=== PATIENT | female | born 1935 | race Caucasian/White ===

== ENCOUNTER → 2017-12-03 | Outpatient (CLI) | payer MEDICARE, OTHER ==
[~2017-12-03] MED LIST: OMNIPAQUE 350 MG/ML, 100ML BOTTLE ONE
[2017-12-03 10:29] LABS: CREATININE 1.16 mg/dL (0.55-1.02)
== END | disposition home or self-care (01) ==
LOC: RAD 09:36
PROVIDERS: ATTEND Internal Medicine Cardiovascular Disease
DX: R19.01 Right upper quadrant abdominal swelling, mass and lump (principal)
CPT/HCPCS: 36415; 74160; 82565; Q9967

== ENCOUNTER 2018-04-26 14:53 | Emergency (ER) | payer OTHER ==
[~2018-04-26] VITALS: Ht 165.1 cm; Wt 55.5 kg
[2018-04-26 15:11] VITALS: BP 103/57
--- NOTE | 2018-04-26 15:20 | NUR ---
PT AMBULATED STEADILY TO ROOM WITH BOX SPINNER AND FAMILY. NAD NOTED
--- NOTE | 2018-04-26 16:01 | NUR ---
FIRST CONTACT WITH PT. PT SITTING UP IN GURNEY, AWAKE/ALERT. NAD NOTED. PT/FAMILY REPORT SOME RECENT CHANGE IN BEHAVIOR. PT RESPONDING TO QUESTIONS APPROPRIATELY W/ APPROPRIATE DEMEANOR. HX OF MILD DEMENTIA, RX'D ATIVAN. AND RECENT DX OF UTI. PT AMBULATED STEADILY TO BATHROOM TO PROVIDE UA SAMPLE.
--- NOTE | 2018-04-26 16:12 | NUR ---
UA COLLECTED AND SENT TO LAB Addendum: 04/26/18 at 1725 by LWEGENER PT REPORTS "YOU KNOW WHEN YOU'RE AT THAT TIME OF THE MONTH AND YOU JUST FEEL MORE EMOTIONAL THAN NORMAL? I FEEL LIKE I JUST LIVE AT THAT ALL OF THE TIME. ITS A LOT TO HANDLE"
[2018-04-26 16:24] LABS: CULTURE INDICATED? YES; MICROSCOPIC INDICATED
[2018-04-26 16:40] LABS: BASOPHILS # (AUTO) 0.04 x10^3/uL (0-0.1); BASOPHILS % (AUTO) 1 % (0-1); EOSINOPHILS # (AUTO) 0.08 x10^3/uL (0-0.4); EOSINOPHILS % (AUTO) 2 % (1-7); LYMPHOCYTES # (AUTO) 1.37 x10^3/uL (1-3.4); LYMPHOCYTES % (AUTO) 35 % (22-44); MD NO; MEAN CORPUSCULAR HEMOGLOBIN 30.5 pg (27.0-34.8); MEAN CORPUSCULAR VOLUME 89.6 fL (80-100); MEAN PLATELET VOLUME 8.2 fL (7.4-10.4); MONOCYTES # (AUTO) 0.35 x10^3/uL (0.2-0.8); MONOCYTES % (AUTO) 9 % (2-9); NEUTROPHILS # (AUTO) 2.08 x10^3/uL (1.8-6.8); NEUTROPHILS % (AUTO) 53 % (42-75); PLATELET COUNT 311 x10^3/uL (130-400); RED BLOOD COUNT 4.17 x10^6/uL (3.82-5.3); RED CELL DISTRIBUTION WIDTH 12.6 % (9.6-15.2)
[2018-04-26 16:45] LABS: ALANINE AMINOTRANSFERASE 34 U/L (12-78); ALBUMIN 3.8 g/dL (3.4-5.0); ANION GAP 8 mmol/L (5-15); CALCIUM 8.2 mg/dL (8.5-10.1); CHLORIDE 105 mmol/L (98-107); CREATININE 1.46 mg/dL (0.55-1.02)
[2018-04-26 16:47] LABS: SALICYLATE LEVEL < 1.7 mg/dL (2.8-20.0)
[2018-04-26 16:48] LABS: ACETAMINOPHEN < 2 mcg/mL (10-30); ALKALINE PHOSPHATASE 109 U/L (45-117); BILIRUBIN,TOTAL 0.6 mg/dL (0.2-1.0); TOTAL PROTEIN 7.5 g/dL (6.4-8.2)
[2018-04-26 16:57] LABS: AMPHETAMINE SCREEN, URINE Negative (Negative); BARBITURATE SCREEN, URINE Negative (Negative); BENZODIAZEPINE SCREEN, URINE Negative (Negative); CANNABINOID SCREEN, URINE Negative (Negative); COCAINE SCREEN, URINE Negative (Negative); METHADONE SCREEN, URINE Negative (Negative); OPIATE SCREEN, URINE Negative (Negative)
--- NOTE | 2018-04-26 17:23 | NUR ---
PT SITTING UP IN BIMAL VILLATORO NOTED. SOC TELE-BOT AT BEDSIDE. FAMILY PRESENT. PT CALM AND COOPERATIVE.
--- NOTE | 2018-04-26 17:44 | NUR ---
REPORT TO SOC MD
--- NOTE | 2018-04-26 18:05 | NUR ---
REPORT TO WILLY FIELDS
[2018-04-26 18:17] LABS: FREE T4 (FREE THYROXINE) 1.53 ng/dL (0.76-1.46); THYROID STIMULATING HORMONE 6.77 mIU/L (0.358-3.740)
--- NOTE | 2018-04-26 18:20 | NUR ---
TELEPSYCH CURRENTLY IN PROGRESS
--- NOTE | 2018-04-26 18:57 | NUR ---
TELEPSYCH CONSULT COMPLETED. AWAITING RECHECK BY MD FOR DISPO. PT RESTING IN ROOM WITH FAMILY AT BEDSIDE. CALL LIGHT WITHIN REACH. FAMILY UPDATED.
--- NOTE | 2018-04-26 19:15 | NUR ---
DC PAPERS RECEIVED. PT REQUESTING TO SPEAK WITH MD PRIOR TO DC, NOTIFIED
--- NOTE | 2018-04-26 19:18 | NUR ---
MD AT BEDSIDE TO UPDATE PT AND FAMILY ON POC.
== END 2018-04-26 19:23 | disposition home or self-care (01) ==
LOC: ED 16:41
DX: G30.0 Alzheimer's disease with early onset (principal); F02.80 Dementia in other diseases classified elsewhere, unspecified severity, without behavioral disturbance, psychotic disturbance, mood disturbance, and anxiety
CPT/HCPCS: 36415; 80053; 80307; 80329; 81001; 84439; 84443; 85025; 87086; 99283; G0480

== ENCOUNTER 2018-05-09 23:46 | Observation (INO) | payer MEDICARE, OTHER ==
[~2018-05-09] VITALS: Ht 165.1 cm; Wt 57.6 kg
[~2018-05-09 23:46] MED LIST changes: +ATIVAN PO; +NITR100C56 PO; -OMNIPAQUE 350 MG/ML, 100ML BOTTLE ONE; +ONDA4TAB12 PO; +PHEN-418 PO
[2018-05-10 00:54] LABS: BASOPHILS # (AUTO) 0.04 x10^3/uL (0-0.1); BASOPHILS % (AUTO) 1 % (0-1); EOSINOPHILS # (AUTO) 0.08 x10^3/uL (0-0.4); EOSINOPHILS % (AUTO) 2 % (1-7); LYMPHOCYTES # (AUTO) 1.38 x10^3/uL (1-3.4); LYMPHOCYTES % (AUTO) 41 % (22-44); MD NO; MEAN CORPUSCULAR HEMOGLOBIN 30.8 pg (27.0-34.8); MEAN CORPUSCULAR HGB CONC 34.6 g/dL (32.4-35.8); MEAN CORPUSCULAR VOLUME 89.2 fL (80-100); MONOCYTES # (AUTO) 0.48 x10^3/uL (0.2-0.8); MONOCYTES % (AUTO) 14 % (2-9); NEUTROPHILS % (AUTO) 41 % (42-75); PLATELET COUNT 206 x10^3/uL (130-400); RED CELL DISTRIBUTION WIDTH 13.3 % (9.6-15.2)
[2018-05-10] MEDS: OLANZAPINE 2.5 MG TABLET PO SCH ×2 (01:00→20:06)
[2018-05-10] MEDS ORDERED: ONDANSETRON 2MG/ML, 2ML IVPush PRN (01:00)
[2018-05-10 01:05] LABS: ALANINE AMINOTRANSFERASE 20 U/L (12-78); ALBUMIN 3.3 g/dL (3.4-5.0); ANION GAP 7 mmol/L (5-15); CALCIUM 8.2 mg/dL (8.5-10.1); CHLORIDE 112 mmol/L (98-107); CREATININE 1.45 mg/dL (0.55-1.02)
[2018-05-10 01:15] LABS: ALKALINE PHOSPHATASE 119 U/L (45-117); BILIRUBIN,TOTAL 0.4 mg/dL (0.2-1.0); THYROID STIMULATING HORMONE 0.167 mIU/L (0.358-3.740); TOTAL PROTEIN 6.4 g/dL (6.4-8.2)
--- NOTE | 2018-05-10 01:28 | NUR ---
REPORT GIVEN TO WILLY EDMONDS
[2018-05-10 01:53] VITALS: BP 162/84
[2018-05-10 03:40] LABS: MICROSCOPIC AUTO
[2018-05-10 03:48] LABS: CULTURE INDICATED? NO
[2018-05-10 06:33] VITALS: BP 164/78
[2018-05-10] MEDS ORDERED: POTASSIUM CHLORIDE 20 MEQ TAB.ER.PRT PO ONE (09:00)
[2018-05-10] MEDS: LISINOPRIL 10 MG TABLET PO SCH (09:44)
[2018-05-10 12:38] VITALS: BP 144/67
[2018-05-10 19:06] VITALS: BP 139/67
[2018-05-11 01:59] VITALS: BP 167/81
[2018-05-11 06:06] LABS: CHLORIDE 113 mmol/L (98-107)
[2018-05-11 06:09] LABS: MEAN CORPUSCULAR HGB CONC 33.7 g/dL (32.4-35.8); MEAN CORPUSCULAR VOLUME 89.1 fL (80-100); MEAN PLATELET VOLUME 8.2 fL (7.4-10.4); PLATELET COUNT 176 x10^3/uL (130-400); RED BLOOD COUNT 3.73 x10^6/uL (3.82-5.3); RED CELL DISTRIBUTION WIDTH 12.7 % (9.6-15.2)
[2018-05-11 06:26] LABS: BASOPHILS # (AUTO) 0.03 x10^3/uL (0-0.1); BASOPHILS % (AUTO) 1 % (0-1); EOSINOPHILS % (AUTO) 4 % (1-7); LYMPHOCYTES # (AUTO) 1.48 x10^3/uL (1-3.4); LYMPHOCYTES % (AUTO) 51 % (22-44); MD SCAN; MONOCYTES # (AUTO) 0.36 x10^3/uL (0.2-0.8); MONOCYTES % (AUTO) 12 % (2-9); NEUTROPHILS # (AUTO) 0.93 x10^3/uL (1.8-6.8); NEUTROPHILS % (AUTO) 32 % (42-75)
[2018-05-11 06:27] LABS: ALANINE AMINOTRANSFERASE 17 U/L (12-78); ALBUMIN 3.3 g/dL (3.4-5.0); ALKALINE PHOSPHATASE 86 U/L (45-117); ANION GAP 7 mmol/L (5-15); BILIRUBIN,TOTAL 0.6 mg/dL (0.2-1.0); CALCIUM 8.5 mg/dL (8.5-10.1); CREATININE 1.05 mg/dL (0.55-1.02); FREE T4 (FREE THYROXINE) 1.05 ng/dL (0.76-1.46); THYROID STIMULATING HORMONE 0.237 mIU/L (0.358-3.740); TOTAL PROTEIN 6.4 g/dL (6.4-8.2)
[2018-05-11 06:52] VITALS: BP 183/85
[2018-05-11] MEDS: LISINOPRIL 10 MG TABLET PO SCH (07:35)
[2018-05-11 08:20] VITALS: BP 189/90
[2018-05-11] MEDS: ENALAPRILAT 1.25 MG/ML, 2ML IV PRN (08:35)
[2018-05-11 09:08] VITALS: BP 148/70
[2018-05-11 12:17] VITALS: BP 164/79
[2018-05-11] MEDS ORDERED: ACETAMINOPHEN 325 MG TABLET PO PRN (16:00)
[2018-05-11 19:15] VITALS: BP 153/78
[2018-05-11] MEDS: OLANZAPINE 2.5 MG TABLET PO SCH (20:40)
[2018-05-12] VITALS (8 sets, daily range): BP systolic 158–186; BP diastolic 65–88
[2018-05-12] MEDS: ENALAPRILAT 1.25 MG/ML, 2ML IV PRN ×2 (02:31→13:30)
[2018-05-12] MEDS: LISINOPRIL 10 MG TABLET PO SCH ×2 (07:32→20:06)
[2018-05-12 08:49] LABS: MEAN CORPUSCULAR HGB CONC 33.6 g/dL (32.4-35.8); MEAN CORPUSCULAR VOLUME 89.3 fL (80-100); MEAN PLATELET VOLUME 7.9 fL (7.4-10.4); PLATELET COUNT 219 x10^3/uL (130-400); RED CELL DISTRIBUTION WIDTH 13.1 % (9.6-15.2)
[2018-05-12 09:00] LABS: ALBUMIN 4.1 g/dL (3.4-5.0); ANION GAP 6 mmol/L (5-15); CALCIUM 9.4 mg/dL (8.5-10.1); CHLORIDE 107 mmol/L (98-107); CREATININE 1.14 mg/dL (0.55-1.02)
[2018-05-12 09:53] LABS: BASOPHILS # (AUTO) 0.02 x10^3/uL (0-0.1); BASOPHILS % (AUTO) 1 % (0-1); EOSINOPHILS % (AUTO) 4 % (1-7); LYMPHOCYTES # (AUTO) 1.18 x10^3/uL (1-3.4); LYMPHOCYTES % (AUTO) 41 % (22-44); MD SCAN; MONOCYTES # (AUTO) 0.36 x10^3/uL (0.2-0.8); MONOCYTES % (AUTO) 12 % (2-9); NEUTROPHILS # (AUTO) 1.21 x10^3/uL (1.8-6.8); NEUTROPHILS % (AUTO) 42 % (42-75)
[2018-05-12] MEDS ORDERED: AMLODIPINE 5 MG TABLET PO ONE (15:00)
[2018-05-12] MEDS ORDERED: LISINOPRIL 20 MG TABLET PO SCH (15:00)
[2018-05-12] MEDS: OLANZAPINE 2.5 MG TABLET PO SCH (20:06)
[2018-05-13 01:29] VITALS: BP 145/76
[2018-05-13 08:13] VITALS: BP 147/81
[2018-05-13] MEDS: LISINOPRIL 10 MG TABLET PO SCH ×2 (09:35→19:55)
[2018-05-13] MEDS: AMLODIPINE 5 MG TABLET PO SCH (09:35)
[2018-05-13 14:26] VITALS: BP 139/85
[2018-05-13 19:03] VITALS: BP 130/69
[2018-05-13] MEDS: OLANZAPINE 2.5 MG TABLET PO SCH (19:56)
[2018-05-14 00:10] VITALS: BP 123/75
[2018-05-14 05:51] LABS: MEAN CORPUSCULAR HEMOGLOBIN 30.3 pg (27.0-34.8); MEAN CORPUSCULAR HGB CONC 33.9 g/dL (32.4-35.8); MEAN CORPUSCULAR VOLUME 89.4 fL (80-100); MEAN PLATELET VOLUME 8.2 fL (7.4-10.4); PLATELET COUNT 202 x10^3/uL (130-400); RED BLOOD COUNT 4.08 x10^6/uL (3.82-5.3); RED CELL DISTRIBUTION WIDTH 13.2 % (9.6-15.2)
[2018-05-14 05:58] LABS: ALBUMIN 3.5 g/dL (3.4-5.0); ANION GAP 5 mmol/L (5-15); CALCIUM 8.9 mg/dL (8.5-10.1); CHLORIDE 110 mmol/L (98-107); CREATININE 1.09 mg/dL (0.55-1.02)
[2018-05-14 06:17] LABS: BASOPHILS # (AUTO) 0.02 x10^3/uL (0-0.1); BASOPHILS % (AUTO) 1 % (0-1); EOSINOPHILS # (AUTO) 0.11 x10^3/uL (0-0.4); EOSINOPHILS % (AUTO) 4 % (1-7); LYMPHOCYTES # (AUTO) 1.31 x10^3/uL (1-3.4); LYMPHOCYTES % (AUTO) 51 % (22-44); MD SCAN; MONOCYTES # (AUTO) 0.31 x10^3/uL (0.2-0.8); MONOCYTES % (AUTO) 12 % (2-9); NEUTROPHILS # (AUTO) 0.79 x10^3/uL (1.8-6.8); NEUTROPHILS % (AUTO) 31 % (42-75)
[2018-05-14 06:55] VITALS: BP 132/68
[2018-05-14] MEDS: LISINOPRIL 10 MG TABLET PO SCH ×2 (09:13→20:52)
[2018-05-14] MEDS: AMLODIPINE 5 MG TABLET PO SCH (09:15)
[2018-05-14 13:15] VITALS: BP 156/68
[2018-05-14 19:40] VITALS: BP 102/60
[2018-05-14 20:50] VITALS: BP 141/74
[2018-05-14] MEDS ORDERED: MELATONIN 3 MG TABLET PO SCH (21:00)
[2018-05-15 01:55] VITALS: BP 139/68
[2018-05-15] MEDS ORDERED: QUETIAPINE 25MG TABLET PO ONE (08:30)
[2018-05-15 08:45] VITALS: BP 120/56
[2018-05-15] MEDS: AMLODIPINE 5 MG TABLET PO SCH (08:51)
[2018-05-15] MEDS: LISINOPRIL 10 MG TABLET PO SCH ×2 (08:51→22:33)
[2018-05-15 09:07] VITALS: BP 122/93
[2018-05-15 11:52] LABS: BASOPHILS # (AUTO) 0.02 x10^3/uL (0-0.1); BASOPHILS % (AUTO) 1 % (0-1); EOSINOPHILS # (AUTO) 0.03 x10^3/uL (0-0.4); EOSINOPHILS % (AUTO) 1 % (1-7); LYMPHOCYTES # (AUTO) 0.93 x10^3/uL (1-3.4); LYMPHOCYTES % (AUTO) 31 % (22-44); MD NO; MEAN CORPUSCULAR HEMOGLOBIN 30.3 pg (27.0-34.8); MEAN CORPUSCULAR VOLUME 89.1 fL (80-100); MEAN PLATELET VOLUME 7.9 fL (7.4-10.4); MONOCYTES # (AUTO) 0.32 x10^3/uL (0.2-0.8); MONOCYTES % (AUTO) 11 % (2-9); NEUTROPHILS # (AUTO) 1.66 x10^3/uL (1.8-6.8); NEUTROPHILS % (AUTO) 56 % (42-75); PLATELET COUNT 215 x10^3/uL (130-400); RED BLOOD COUNT 3.73 x10^6/uL (3.82-5.3); RED CELL DISTRIBUTION WIDTH 13.2 % (9.6-15.2)
[2018-05-15 12:04] LABS: ALBUMIN 3.6 g/dL (3.4-5.0); ANION GAP 5 mmol/L (5-15); CALCIUM 8.8 mg/dL (8.5-10.1); CHLORIDE 108 mmol/L (98-107); CREATININE 1.11 mg/dL (0.55-1.02)
[2018-05-15 15:16] VITALS: BP 137/68
[2018-05-15] MEDS: VALPROATE SODIUM 250 MG/5 ML ORAL SOLN PO SCH ×3 (15:26→22:33)
[2018-05-15 19:12] VITALS: BP 154/72
[2018-05-15] MEDS: MELATONIN 5 MG TABLET PO SCH (22:33)
[2018-05-16 00:36] VITALS: BP 117/63
[2018-05-16 07:02] VITALS: BP 135/80
[2018-05-16] MEDS: AMLODIPINE 5 MG TABLET PO SCH (09:04)
[2018-05-16] MEDS: LISINOPRIL 10 MG TABLET PO SCH ×2 (09:04→21:00)
[2018-05-16] MEDS: VALPROATE SODIUM 250 MG/5 ML ORAL SOLN PO SCH ×2 (09:04→21:00)
[2018-05-16 09:30] VITALS: BP 95/68
[2018-05-16 13:33] VITALS: BP 127/72
[2018-05-16 19:16] VITALS: BP 103/62
[2018-05-16] MEDS: MELATONIN 5 MG TABLET PO SCH (21:00)
[2018-05-17 01:45] VITALS: BP 120/66
[2018-05-17 06:53] VITALS: BP 146/72
[2018-05-17] MEDS: LISINOPRIL 10 MG TABLET PO SCH ×2 (09:52→19:54)
[2018-05-17] MEDS: VALPROATE SODIUM 250 MG/5 ML ORAL SOLN PO SCH ×2 (09:52→19:54)
[2018-05-17 12:58] VITALS: BP 123/61
[2018-05-17 19:03] VITALS: BP 138/69
[2018-05-17] MEDS: MELATONIN 5 MG TABLET PO SCH (19:54)
[2018-05-18 03:10] VITALS: BP 137/64
[2018-05-18 06:57] VITALS: BP 125/77
[2018-05-18] MEDS: LISINOPRIL 10 MG TABLET PO SCH ×2 (09:39→20:04)
[2018-05-18] MEDS: VALPROATE SODIUM 250 MG/5 ML ORAL SOLN PO SCH ×2 (09:39→20:04)
[2018-05-18 13:38] VITALS: BP 149/81
[2018-05-18 18:46] VITALS: BP 126/81
[2018-05-18] MEDS: MELATONIN 5 MG TABLET PO SCH (20:04)
[2018-05-19] VITALS (10 sets, daily range): BP systolic 84–136; BP diastolic 48–79
[2018-05-19] MEDS: LISINOPRIL 10 MG TABLET PO SCH (09:37)
[2018-05-19] MEDS: VALPROATE SODIUM 250 MG/5 ML ORAL SOLN PO SCH ×2 (09:37→21:06)
[2018-05-19] MEDS ORDERED: SODIUM CHLORIDE 0.9%, 500ML IVBOLUS ONE (10:00)
[2018-05-19] MEDS: MELATONIN 5 MG TABLET PO SCH (21:06)
[2018-05-20 04:14] VITALS: BP 146/86
[2018-05-20 07:47] VITALS: BP 129/77
[2018-05-20] MEDS: VALPROATE SODIUM 250 MG/5 ML ORAL SOLN PO SCH (08:52)
[2018-05-20] MEDS ORDERED: MELA5TAB19 PO (11:17)
[2018-05-20] MEDS ORDERED: ACET325T14 PO (11:17)
[2018-05-20] MEDS ORDERED: VALP250S PO (11:17)
[2018-05-20 12:33] VITALS: BP 146/78
[2018-05-20 19:00] VITALS: BP 135/85
[2018-05-20] MEDS ORDERED: VALPROATE SODIUM 250 MG/5 ML ORAL SOLN PO SCH (19:00)
[2018-05-20] MEDS ORDERED: MELATONIN 5 MG TABLET PO SCH (19:00)
[2018-05-21 05:33] VITALS: BP 121/68
[2018-05-21 08:13] VITALS: BP 116/80
[2018-05-21] MEDS: VALPROATE SODIUM 250 MG/5 ML ORAL SOLN PO SCH (08:26)
[2018-05-21] MEDS ORDERED: VALPROATE SODIUM 250 MG/5 ML ORAL SOLN PO SCH (09:00)
== END 2018-05-21 11:33 | disposition home or self-care (01) ==
LOC: ED 05-10 00:05 → SUATTDRO 05-10 00:41 → EDIP 05-10 00:42 → 4NOR 05-10 01:45
PROVIDERS: ADMIT Hospitalist; ATTEND Hospitalist
DX: F03.90 Unspecified dementia, unspecified severity, without behavioral disturbance, psychotic disturbance, mood disturbance, and anxiety (principal); D64.9 Anemia, unspecified; E05.90 Thyrotoxicosis, unspecified without thyrotoxic crisis or storm; E86.0 Dehydration; F02.81 Dementia in other diseases classified elsewhere, unspecified severity, with behavioral disturbance; I10 Essential (primary) hypertension; N28.9 Disorder of kidney and ureter, unspecified; Z81.1 Family history of alcohol abuse and dependence; Z90.710 Acquired absence of both cervix and uterus
CPT/HCPCS: 36415; 80048; 80053; 81001; 82040; 83735; 84100; 84439; 84443; 85025; 86480; 92523; 93005; 96374; 96376; 97116; 97161; 97166; 97530; 99284; G0378; G0515; G8978; G8979; G8980; J7040